=== PATIENT | female | born 1935 | race African-American/Black ===

== ENCOUNTER 2016-09-13 08:58 | Inpatient (IN) | payer MEDICARE ==
[~2016-09-13] VITALS: Ht 165.1 cm; Wt 81.2 kg
--- NOTE | 2016-09-13 09:50 | ED.ADGEN ---
Past Medical History Past Medical History: A-Fib, High Cholesterol, Hypertension Past Surgical History: Other Additional Past Surgical Histo: right wrist Alcohol Use: None Drug Use: None Adult General Chief Complaint Chief Complaint: EARACHE/EAR PAIN HPI HPI Patient is a 81 year old [woman, history of atrial fibrillation, hyper- cholesterolemia, hypertension, who presents to the emergency department multiple complaints. Patient states she's been experiencing sore throat, and ear pain since August. States that she's been seen by both her primary care provider and urgent care for this issue. States that she was started on a Z-Addi by her doctor, and then her ear cleaned out about a week ago at urgent care, and was given nasal spray. Patient states that over the past several days she's began feeling increasingly weak, states that when she stands up she feels as though she might fall down. She denies any distinct vertiginous type symptoms, no blurry vision, no focal weakness in this or tingling, no nausea or vomiting, no chest pain or shortness of breath. Does have a mild operative cough, did not receive a flu vaccination this year. Denies any sick contacts or exposures, history of DVT or PE, any recent travel or surgery. She says is accommodation of the symptoms that bring her to the emergency department today. States that she's been expressing fevers and chills at home, took Tylenol earlier this morning, and is afebrile upon arrival to the ED, has not been checking her temperature at home. Review of Systems Review of Systems Constitutional: Subjective fevers and chills, malaise. Eyes: Denies change in visual acuity. [] HENT: No nasal congestion, complaining of sore throat and left ear pain. Respiratory: Cough, no shortness of breath. Cardiovascular: Denies chest pain or edema. [] GI: Denies abdominal pain, nausea, vomiting, bloody stools or diarrhea. [] : Denies dysuria. [] Musculoskeletal: Denies back pain or joint pain. [] Integument: Denies rash. [] Neurologic: Denies headache, focal weakness or sensory changes. Generalized weakness. Endocrine: Denies polyuria or polydipsia. [] Lymphatic: Denies swollen glands. [] Psychiatric: Denies depression or anxiety. [] Allergies Allergies Physical Exam Physical Exam Constitutional: Well developed, well nourished, no acute distress, non-toxic appearance. [] HENT: Normocephalic, atraumatic, bilateral external ears normal, oropharynx is mildly injected, patient with turbinate swelling bilaterally, areas of mucosal irritation, mild clear rhinorrhea, no exudates, patient with mild swelling of the internal canal noted, with small amount of cerumen, no impaction noted, patient noted to have mild erythema of the TM, but no bulging or drainage identified, right TM noted to have small amount of cerumen, otherwise normal, no oral exudates, nose normal. [] Eyes: PERRLA, EOMI, conjunctiva normal, no discharge. [] Neck: Normal range of motion, no tenderness, supple, no stridor. [] Cardiovascular:Heart rate regular rhythm, no murmur, S1, S2, rubs or gallops. [] Lungs & Thorax: Diminished breath sounds at bases bilaterally, no wheezing, rhonchi, rales. No chest tenderness or crepitus. [] Abdomen: Bowel sounds normal, soft, no tenderness, no masses, no pulsatile masses. [] Skin: Warm, dry, no erythema, no rash. [] Back: No tenderness, no CVA tenderness. [] Extremities: No tenderness, no cyanosis, no clubbing, ROM intact, no edema. [] Neurologic: Alert and oriented X 3, normal motor function, normal sensory function, no focal deficits noted. [] Psychologic: Affect normal, judgement normal, mood normal. [] Current Patient Data Vital Signs Vital Signs Date Time Temp Pulse Resp B/P Pulse Ox O2 Delivery O2 Flow Rate FiO2 09/13/16 09:26 98.4 68 16 169/74 100 Room Air 98.4 Lab Values Laboratory Tests Test 09/13/16 09:40 09/13/16 09:56 09/13/16 10:00 White Blood Count 7.7x10^3/uL (4.0-11.0) Red Blood Count 4.53x10^6/uL (3.50-5.40) Hemoglobin 13.4g/dL (12.0-15.5) Hematocrit 39.8% (36.0-47.0) Mean Corpuscular Volume 88fL (79-100) Mean Corpuscular Hemoglobin 30pg (25-35) Mean Corpuscular Hemoglobin Concent 34g/dL (31-37) Red Cell Distribution Width 13.8% (11.5-14.5) Platelet Count 321x10^3/uL (140-400) Neutrophils (%) (Auto) 71% (31-73) Lymphocytes (%) (Auto) 17% (24-48) L Monocytes (%) (Auto) 10% (0-9) H Eosinophils (%) (Auto) 1% (0-3) Basophils (%) (Auto) 1% (0-3) Neutrophils # (Auto) 5.5x10^3uL (1.8-7.7) Lymphocytes # (Auto) 1.3x10^3/uL (1.0-4.8) Monocytes # (Auto) 0.8x10^3/uL (0.0-1.1) Eosinophils # (Auto) 0.1x10^3/uL (0.0-0.7) Basophils # (Auto) 0.1x10^3/uL (0.0-0.2) Sodium Level 136mmol/L (136-145) Potassium Level 3.8mmol/L (3.5-5.1) Chloride Level 97mmol/L (98-107) L Carbon Dioxide Level 27mmol/L (21-32) Anion Gap 12 (6-14) Blood Urea Nitrogen 15mg/dL (7-20) Creatinine 1.1mg/dL (0.6-1.0) H Estimated GFR (Cockcroft-Gault) 57.5 BUN/Creatinine Ratio 14 (6-20) Glucose Level 97mg/dL (70-99) Calcium Level 9.4mg/dL (8.5-10.1) Total Bilirubin 0.4mg/dL (0.2-1.0) Aspartate Amino Transferase (AST) 13U/L (15-37) L Alanine Aminotransferase (ALT) 19U/L (14-59) Alkaline Phosphatase 94U/L (46-116) Troponin I Quantitative < 0.017ng/mL (0.000-0.055) SF-Cwh-D-Type Natriuretic Peptide 36pg/mL (0-449) Total Protein 7.1g/dL (6.4-8.2) Albumin 3.6g/dL (3.4-5.0) Albumin/Globulin Ratio 1.0 (1.0-1.7) Influenza Type A Antigen Negative (NEGATIVE) Influenza Type B Antigen Negative (NEGATIVE) Urine Collection Type Unknown Urine Color Yellow Urine Clarity Cloudy Urine pH 6.0 Urine Specific [place] 1.020 Urine Protein Negativemg/dL (NEG-TRACE) Urine Glucose (UA) Negativemg/dL (NEG) Urine Ketones (Stick) 40mg/dL (NEG) Urine Blood Negative (NEG) Urine Nitrite Negative (NEG) Urine Bilirubin Moderate (NEG) Urine Urobilinogen Dipstick 0.2mg/dL (0.2 mg/dL) Urine Leukocyte Esterase Large (NEG) Urine RBC 1-2/HPF (0-2) Urine WBC >40/HPF (0-4) Urine Squamous Epithelial Cells Many/LPF Urine Transitional Epithelial Cells Few/LPF Urine Renal Epithelial Cells Few/LPF Urine Bacteria Many/HPF (0-FEW) Urine Hyaline Casts Moderate/HPF Urine Mucus Marked/LPF Urine Opiates Screen Neg (NEG) Urine Methadone Screen Neg (NEG) Urine Barbiturates Neg (NEG) Urine Phencyclidine Screen Neg (NEG) Urine Amphetamine/Methamphetamine Neg (NEG) Urine Benzodiazepines Screen Neg (NEG) Urine Cocaine Screen Neg (NEG) Urine Cannabinoids Screen Neg (NEG) Urine Ethyl Alcohol Neg (NEG) Laboratory Tests 09/13/16 09:40 Laboratory Tests 09/13/16 09:40 EKG EKG EC: Sinus rhythm, heart rate 60 bpm, left axis deviation with left anterior fascicular block noted, incomplete right bundle-branch block noted, QTc of 448, MN of 180, QRS of 118, abnormal ECG as stated, no ST elevations or depressions, as not meet STEMI criteria. As interpreted by me. Radiology/Procedures Radiology/Procedures [] [facility] [address] [place] [address] IMAGING REPORT Signed PATIENT: OSIRIS MAIER V ACCOUNT: [id number] : 1935 LOCATION: ER AGE: 81 SEX: F EXAM STATUS: REG ER ORD. PHYSICIAN: GISELE BROWN DO REASON: weakness PROCEDURE: PORTABLE CHEST 1V Examination: Single frontal view chest History: History of weakness, sore throat, earache Comparison: 07/27/2012 Findings: The cardiomediastinal silhouette grossly appears unremarkable. There is no acute infiltrate or visualized pneumothorax identified. Impression: No acute cardiopulmonary findings. DICTATED and SIGNED BY: SUELLEN ALTAMIRANO MD DATE: 09/13/16 0955 CC: GINO MACR MD; GISELE BROWN DO ~ Impressions: [facility] [address] [place] [address] IMAGING REPORT Signed PATIENT: OSIRIS MAIER V ACCOUNT: [id number] : 1935 LOCATION: ER AGE: 81 SEX: F EXAM STATUS: REG ER ORD. PHYSICIAN: GISELE BROWN DO REASON: weakness/PEÑA/earache PROCEDURE: HEAD WO CONTRAST CT head without contrast History: history of headache, dizziness Comparison: None. Procedure: Axial images are obtained of the head from the skull base through the vertex without IV contrast. Findings: Moderate bilateral periventricular white matter hypodensities likely chronic small vessel ischemic disease. There is no acute intracranial bleed or extra axial fluid collection identified. No evidence of midline shift. The ventricles are appropriate for age.. The visualized paranasal sinuses appear clear. Impression: 1. No acute intracranial process. PQRS Compliance Statement: One or more of the following individualized dose reduction techniques were utilized for this examination: 1. Automated exposure control 2. Adjustment of the mA and/or kV according to patient size 3. Use of iterative reconstruction technique DICTATED and SIGNED BY: SUELLEN ALTAMIRANO MD DATE: 09/13/16 1030 CC: GINO MARC MD; GISELE BROWN DO ~ Course & Med Decision Making Course & Med Decision Making Pertinent Labs and Imaging studies reviewed. (See chart for details) Patient with a grossly normal neurologic examination, CT of the head obtained due to her complaints of headache, weakness, off balance sensation, any ear pain. CT of the head did not reveal any evidence of concerning findings. X-ray of the chest was unremarkable, laboratory studies revealed urine with greater than 40 does BCs, bacteria, and ketones. On reevaluation patient states that she is still feeling "terrible", she still feels weak and as though when she stands up she will fall down. She denies any focal weakness as stated, this is a general sensation of malaise. Discussed findings as above with patient, due to complaints will treat for urinary tract infection, along with hydration, and monitoring. Findings as above discussed with Dr. Oro of internal medicine, patient accepted to her service as a full admission to the medical telemetry floor with IV fluids and ceftriaxone initiated in the ED. Dragon Disclaimer Dragon Disclaimer This electronic medical record was generated, in whole or in part, using a voice recognition dictation system. Departure Impression: Primary Impression: UTI (urinary tract infection) Additional Impression: Weakness Disposition: ADMITTED INPATIENT Admitting Physician: Karen Oro Condition: IMPROVED Problem Qualifiers Primary Impression: UTI (urinary tract infection) Urinary tract infection type: acute cystitis Hematuria presence: without hematuria Qualified Code: N30.00 - Acute cystitis without hematuria GISELE BROWN DO Sep 13, 2016 09:49
[2016-09-13 09:51] LABS: BASO # 0.1 x10^3/uL (0.0-0.2); BASO % 1 % (0-3); EOS % 1 % (0-3); HEMATOCRIT 39.8 % (36.0-47.0); HEMOGLOBIN 13.4 g/dL (12.0-15.5); LYMPH # 1.3 x10^3/uL (1.0-4.8); LYMPH % 17 % (24-48); MEAN CORPUSCULAR HEMOGLOBIN 30 pg (25-35); MEAN CORPUSCULAR HGB CONC 34 g/dL (31-37); MEAN CORPUSCULAR VOLUME 88 fL (79-100); MONO % 10 % (0-9); NEUT % 71 % (31-73); PLATELET COUNT 321 x10^3/uL (140-400); RED BLOOD COUNT 4.53 x10^6/uL (3.50-5.40); RED CELL DISTRIBUTION WIDTH 13.8 % (11.5-14.5); WHITE BLOOD COUNT 7.7 x10^3/uL (4.0-11.0)
--- NOTE | 2016-09-13 09:59 | RAD ---
Examination: Single frontal view chest History: History of weakness, sore throat, earache Comparison: 07/27/2012 Findings: The cardiomediastinal silhouette grossly appears unremarkable. There is no acute infiltrate or visualized pneumothorax identified. Impression: No acute cardiopulmonary findings.
[2016-09-13 10:01] LABS: CALCIUM 9.4 mg/dL (8.5-10.1); CREATININE 1.1 mg/dL (0.6-1.0); GFR 57.5; POTASSIUM 3.8 mmol/L (3.5-5.1)
[2016-09-13 10:06] LABS: ALBUMIN 3.6 g/dL (3.4-5.0); TOTAL BILIRUBIN 0.4 mg/dL (0.2-1.0); TOTAL PROTEIN 7.1 g/dL (6.4-8.2)
[2016-09-13 10:26] LABS: BILIRUBIN,URINE MODERATE (NEG); GLUCOSE,URINE NEGATIVE (NEG); NITRITE,URINE NEGATIVE (NEG); PROTEIN,URINE NEGATIVE (NEG-TRACE); UROBILINOGEN,URINE 0.2 mg/dL (0.2 mg/dL)
[2016-09-13 10:28] LABS: OBC FLU VALID
[2016-09-13 10:32] LABS: BARBITURATES NEG (NEG); BENZODIAZEPINES NEG (NEG); CANNABINOIDS NEG (NEG); COCAINE NEG (NEG); METHADONE NEG (NEG); OPIATES NEG (NEG); PHENCYCLIDINE NEG (NEG)
[2016-09-13 10:33] LABS: ETHANOL, URINE NEG (NEG)
[2016-09-13 10:34] LABS: BACTERIA,URINE MANY /HPF (0-FEW); SQUAMOUS EPITHELIAL CELL,UR MANY /LPF; WBC,URINE >40 /HPF (0-4)
--- NOTE | 2016-09-13 10:36 | RAD ---
CT head without contrast History: history of headache, dizziness Comparison: None. Procedure: Axial images are obtained of the head from the skull base through the vertex without IV contrast. Findings: Moderate bilateral periventricular white matter hypodensities likely chronic small vessel ischemic disease. There is no acute intracranial bleed or extra axial fluid collection identified. No evidence of midline shift. The ventricles are appropriate for age.. The visualized paranasal sinuses appear clear. Impression: 1. No acute intracranial process. PQRS Compliance Statement: One or more of the following individualized dose reduction techniques were utilized for this examination: 1. Automated exposure control 2. Adjustment of the mA and/or kV according to patient size 3. Use of iterative reconstruction technique
--- NOTE | 2016-09-13 10:58 | EKG ---
[facility] [address] [place] [address] Test Date: 2016-09-13 Test Time: 10:28:35 Pat Name: OSIRIS MAIER Department: Room: Gender: F [employer] Work[employer]: : 1935 Requested By: GISELE BROWN Order Number: [id number] Reading MD: Roc Wheeler Measurements Intervals [place] Rate: 60 P: 56 MO: 180 QRS: -47 QRSD: 118 T: 10 QT: 448 QTc: 448 Interpretive Statements SINUS RHYTHM ABNORMAL LEFT AXIS DEVIATION R-S TRANSITION ZONE IN V LEADS DISPLACED TO THE RIGHT LEFT ANTERIOR FASCICULAR BLOCK INCOMPLETE RIGHT BUNDLE BRANCH BLOCK RI6.01 Unconfirmed report Compared to ECG 07/27/2012 13:02:34 Electronically Signed On 09-14-2016 9:42:34 EVALUATION SPECIALIST by Roc Wheeler
[2016-09-13] MEDS ORDERED: IV NORMAL SALINE 1000ML BAG 1,000 ML IV ONE (12:00)
[2016-09-13] MEDS ORDERED: CEFTRIAXONE 1GM IVPB FOR OMNI 50 ML IV ONE (12:00)
[2016-09-13] MEDS ORDERED: CALCIUM CARBONATE 500 MG TAB.CHEW PO PRN (13:00)
[2016-09-13] MEDS ORDERED: OXYCODONE IR 5 MG TABLET. PO PRN (13:00)
[2016-09-13] MEDS ORDERED: ZOLPIDEM 5 MG TABLET. PO PRN (13:00)
[2016-09-13] MEDS ORDERED: PROCHLORPERAZINE 25 MG SUPP.RECT. PR PRN (13:00)
[2016-09-13] MEDS ORDERED: ONDANSETRON PF 4 MG/2 ML VIAL. IV PRN (13:00)
[2016-09-13] MEDS ORDERED: MAG HYDROX/ALUMINUM HYD/SIMETH 30 ML ORAL.SUSP PO PRN (13:00)
[2016-09-13] MEDS ORDERED: PROCHLORPERAZINE 10 MG/2 ML VIAL. IV PRN (13:00)
[2016-09-13] MEDS ORDERED: MORPHINE SULFATE 2 MG/ML DISP.SYRIN. IV PRN (13:00)
[2016-09-13] MEDS ORDERED: hydrALAZINE 20 MG/ML VIAL. IVP PRN (13:15)
[2016-09-13] MEDS ORDERED: BUDE10.2 IH (13:54)
[2016-09-13] MEDS ORDERED: LISI1TAB7 PO (13:54)
[2016-09-13] MEDS ORDERED: METO25TA9 PO (13:54)
[2016-09-13] MEDS ORDERED: SIMV20TA3 PO (13:54)
[2016-09-13] MEDS ORDERED: DILT180C29 PO (13:54)
[2016-09-13] MEDS ORDERED: ERYTHROMYCIN BASE 250 MG TABLET PO SCH (14:00)
--- NOTE | 2016-09-13 14:01 | PDOC1 ---
History and Physical Date of Admission Date of Admission DATE: 09/13/16 TIME: 13:55 Identification/Chief Complaint Chief Complaint left ear ache Source Source: Caregiver, Chart review, Patient History of Present Illness History of Present Illness 81 y.o AA female comes to er bec of left ear ache and odynophagia, has finished OP zpack and ear drops with no relief, But pt admitted bec pt claims she is too weak, she cant stand up or walk. She lives alone at home and does not have assistive device, She claims she might need a walker, She was disheartened when I told her we dont have ENT here, I inspected ears and posterior pharyngeal wall and did not appreciate any hyperemia, buts he does have some fluid and cerumen and very mild redness external auditory canal, but no tenderness in ear area. She is worried re weakness, hence decided to stay rather than be dcd and do OP ENT. She however refuses to go to inpt rehab if needed ALl albs ok, CXR and labs and flu A and B all neg She claims anaphylaxis to PCN Past Medical History Cardiovascular: HTN Past Surgical History Past Surgical History: No pertinent history Family History Family History: No Significant Social History Smoke: No ALCOHOL: none Current Problem List Problem List Problems Medical Problems: (1) Generalized weakness Status: Acute (2) UTI (urinary tract infection) Status: Acute (3) Weakness Status: Acute Problems: Current Medications Current Medications Current Medications Sodium Chloride 1,000 ml @ 100 mls/hr 1X ONCE IV Last administered on 12:04; Start 09/13/16 at 12:00; Stop 09/13/16 at 21:59 Ceftriaxone Sodium 50 ml @ 100 mls/hr 1X ONCE IV Last administered on 12:04; Start 09/13/16 at 12:00; Stop 09/13/16 at 12:29; Status DC Ceftriaxone Sodium/Sodium Chloride (Rocephin/Iv Sodium Chloride 0.9% 50ml) 50 ml @ 100 mls/hr Q24H IV ; Start 09/14/16 at 12:00 Ondansetron HCl (Zofran) 4 mg PRN Q6HRS PRN IV NAUSEA/VOMITING; Start 09/13/16 at 13:00 Prochlorperazine Edisylate (Compazine) 10 mg PRN Q6HRS PRN IV NAUSEA/VOMITING; Start 09/13/16 at 13:00 Prochlorperazine (Compazine) 25 mg PRN Q12HR PRN [place] NAUSEA/VOMITING; Start 09/13 at 13:00 Al Hydrox/Mg Hydrox/Simethicone (Mylanta Plus Xs) 30 ml PRN Q3HRS PRN PO HEARTBURN / GAS; Start 09/13/16 at 13:00 Calcium Carbonate/ Glycine (Tums) 500 mg PRN Q3HRS PRN PO UPSET STOMACH; Start 09/13/16 at 13:00 Zolpidem Tartrate (Ambien) 5 mg PRN QHS PRN PO INSOMNIA, MAY REPEAT IN 1HR; Start 09/13/16 at 13:00 Oxycodone HCl (Roxicodone) 5 mg PRN Q3HRS PRN PO BREAKTHROUGH PAIN; Start at 13:00 Morphine Sulfate 1 mg PRN Q2HR PRN IV PAIN; Start 09/13/16 at 13:00 Hydralazine HCl (Apresoline) 10 mg PRN Q4HRS PRN IVP ELEVATED BP, SEE COMMENTS ; Start 09/13/16 at 13:15 Active Scripts Active Reported Metoprolol Succinate ( Xl ) (Metoprolol Succinate) 25 Mg Tab.er.24h 1 Tab PO HS Simvastatin 20 Mg Tablet 1 Tab PO QHS Lisinopril-Hctz 20-25 Mg Tab (Lisinopril/Hydrochlorothiazide) 1 Each Tablet Tab PO AFTRNOON Diltiazem 24HR Cd (Diltiazem Hcl) 180 Mg Cap.er.24h 2 Cap PO DAILY Symbicort 160-4.5 Mcg Inhaler (Budesonide/Formoterol Fumarate) 10.2 Gm Hfa.aer.ad 2 Puff IH BID Allergies Allergies: Coded Allergies: Penicillins (Verified Allergy, Intermediate, 09/13/16) clindamycin (Verified Allergy, Intermediate, 09/13/16) rosuvastatin (Verified Allergy, Intermediate, 09/13/16) sulfur (Verified Allergy, Intermediate, 09/13/16) ROS General: YES: Fatigue, Other (weakness) PSYCHOLOGICAL ROS: No: Anxiety, Behavioral Disorder, Concentration difficultie , Decreased libido, Depression, Disorientation, Hallucinations, Hostility, Irritablity, Memory difficulties, Mood Swings, Obsessive thoughts, Other, Physical abuse, Sexual abuse, Sleep disturbances, Suicidal ideation Eyes: No Blurry vision, No Decreased vision, No Double vision, No Dry eyes, No Excessive tearing, No Eye Pain, No Itchy Eyes, No Loss of vision, No Other, No Photophobia, No Scotomata, No Uses contacts, No Uses glasses HEENT: YES: Nasal congestion, Other (left ear ache), Sinus pain, Sore Throat ALLERGY AND IMMUNOLOGY: No: Hives, Insect Bite Sensitivity, Itchy/Watery Eyes, Nasal Congestion, Other, Post Nasal Drip, Seasonal Allergies Hematological and Lymphatic: No: Bleeding Problems, Blood Clots, Blood Transfusions, Brusing, Night Sweats, Other, Pallor, Swollen Lymph Nodes ENDOCRINE: No: Breast Changes, Galactorrhea, Hair Pattern Changes, Hot Flashes , Malaise/lethargy, Mood Swings, Other, Palpitations, Polydipsia/polyuria, Skin Changes, Temperature Intolerance, Unexpected Weight Changes Breast: No New/Changing Breast Lumps, No Nipple changes, No Nipple discharge, No Other Respiratory: No: Cough, Hemoptysis, Orthopnea, Other, Pleuritic Pain, SOB with excertion, Shortness of breath, Sputum Changes, Stridor, Tachypnea, Wheezing Gastrointestinal: No Abdominal Pain, No Constipation, No Diarrhea, No Hematochezia, No Melena, No Nausea, No Other, No Vomiting Genitourinary: No , No , No , No , No , No , No , No Discharge, No Dysuria, No Flank Pain, No Frequency, No Hematuria, No Incontinence, No Other, No Pain, No Retention, No Urgency Musculoskeletal: No Gait Disturbance, No Joint Pain, No Joint Stiffness, No Joint Swelling, No Muscle Pain, No Muscular Weakness, No Other, No Pain In:, No Swelling In: Neurological: No Behavorial Changes, No Bowel/Bladder ControlChng, No Confusion , No Dizziness, No Gait Disturbance, No Headaches, No Impaired Coord/balance, No Memory Loss, No Numbness/Tingling, No Other, No Seizures, No Speech Problems , No Tremors, No Visual Changes, No Weakness Skin: No Acne, No Dry Skin, No Eczema, No Hair Changes, No Lumps, No Mole Changes, No Mottling, No Nail Changes, No Other, No Pruritus, No Rash, No Skin Lesion Changes Physical Exam General: Alert, Oriented X3, Cooperative, No acute distress HEENT: PERRLA, Other (no hyperemia, post wall, no abscess TNE, ear wax and some fluid left ear - just ahd drops) Lungs: Clear to auscultation Heart: S1S2, RRR, no thrills Breasts: Normal Abdomen: Normal bowel sounds, Soft, No tenderness, No hepatosplenomegaly, No masses Male Genitals Exam: normal genitalia, normal prostate Rectal Exam: not examined PELVIC: Nml ext genitalia Extremities: No clubbing, No cyanosis, No edema, Normal pulses, No tenderness/ swelling Skin: No rashes, No breakdown, No significant lesion Neuro: Normal gait, Normal speech, Strength at 5/5 X4 ext, Normal tone, Sensation intact, Cranial nerves 3-12 NL, Reflexes 2+ Psych/Mental Status: Mental status NL, Mood NL Vitals Vitals Vital Signs Date Time Temp Pulse Resp B/P Pulse Ox O2 Delivery O2 Flow Rate FiO2 09/13/16 12:30 58 12 150/63 96 09/13/16 09:26 98.4 Room Air 98.4 Labs Labs Laboratory Tests Test 09/13/16 09:40 09/13/16 09:56 09/13/16 10:00 White Blood Count 7.7x10^3/uL (4.0-11.0) Red Blood Count 4.53x10^6/uL (3.50-5.40) Hemoglobin 13.4g/dL (12.0-15.5) Hematocrit 39.8% (36.0-47.0) Mean Corpuscular Volume 88fL (79-100) Mean Corpuscular Hemoglobin 30pg (25-35) Mean Corpuscular Hemoglobin Concent 34g/dL (31-37) Red Cell Distribution Width 13.8% (11.5-14.5) Platelet Count 321x10^3/uL (140-400) Neutrophils (%) (Auto) 71% (31-73) Lymphocytes (%) (Auto) 17% (24-48) Monocytes (%) (Auto) 10% (0-9) Eosinophils (%) (Auto) 1% (0-3) Basophils (%) (Auto) 1% (0-3) Neutrophils # (Auto) 5.5x10^3uL (1.8-7.7) Lymphocytes # (Auto) 1.3x10^3/uL (1.0-4.8) Monocytes # (Auto) 0.8x10^3/uL (0.0-1.1) Eosinophils # (Auto) 0.1x10^3/uL (0.0-0.7) Basophils # (Auto) 0.1x10^3/uL (0.0-0.2) Sodium Level 136mmol/L (136-145) Potassium Level 3.8mmol/L (3.5-5.1) Chloride Level 97mmol/L (98-107) Carbon Dioxide Level 27mmol/L (21-32) Anion Gap 12 (6-14) Blood Urea Nitrogen 15mg/dL (7-20) Creatinine 1.1mg/dL (0.6-1.0) Estimated GFR (Cockcroft-Gault) 57.5 BUN/Creatinine Ratio 14 (6-20) Glucose Level 97mg/dL (70-99) Calcium Level 9.4mg/dL (8.5-10.1) Total Bilirubin 0.4mg/dL (0.2-1.0) Aspartate Amino Transf (AST/SGOT) 13U/L (15-37) Alanine Aminotransferase (ALT/SGPT) 19U/L (14-59) Alkaline Phosphatase 94U/L (46-116) Troponin I Quantitative < 0.017ng/mL (0.000-0.055) BS-Pyv-O-Type Natriuretic Peptide 36pg/mL (0-449) Total Protein 7.1g/dL (6.4-8.2) Albumin 3.6g/dL (3.4-5.0) Albumin/Globulin Ratio 1.0 (1.0-1.7) Influenza Type A Antigen Negative (NEGATIVE) Influenza Type B Antigen Negative (NEGATIVE) Urine Collection Type Unknown Urine Color Yellow Urine Clarity Cloudy Urine pH 6.0 Urine Specific [place] 1.020 Urine Protein Negativemg/dL (NEG-TRACE) Urine Glucose (UA) Negativemg/dL (NEG) Urine Ketones (Stick) 40mg/dL (NEG) Urine Blood Negative (NEG) Urine Nitrite Negative (NEG) Urine Bilirubin Moderate (NEG) Urine Urobilinogen Dipstick 0.2mg/dL (0.2 mg/dL) Urine Leukocyte Esterase Large (NEG) Urine RBC 1-2/HPF (0-2) Urine WBC >40/HPF (0-4) Urine Squamous Epithelial Cells Many/LPF Urine Transitional Epithelial Cells Few/LPF Urine Renal Epithelial Cells Few/LPF Urine Bacteria Many/HPF (0-FEW) Urine Hyaline Casts Moderate/HPF Urine Mucus Marked/LPF Urine Opiates Screen Neg (NEG) Urine Methadone Screen Neg (NEG) Urine Barbiturates Neg (NEG) Urine Phencyclidine Screen Neg (NEG) Urine Amphetamine/Methamphetamine Neg (NEG) Urine Benzodiazepines Screen Neg (NEG) Urine Cocaine Screen Neg (NEG) Urine Cannabinoids Screen Neg (NEG) Urine Ethyl Alcohol Neg (NEG) Laboratory Tests Test 09/13/16 09:40 09/13/16 09:56 09/13/16 10:00 White Blood Count 7.7x10^3/uL (4.0-11.0) Red Blood Count 4.53x10^6/uL (3.50-5.40) Hemoglobin 13.4g/dL (12.0-15.5) Hematocrit 39.8% (36.0-47.0) Mean Corpuscular Volume 88fL (79-100) Mean Corpuscular Hemoglobin 30pg (25-35) Mean Corpuscular Hemoglobin Concent 34g/dL (31-37) Red Cell Distribution Width 13.8% (11.5-14.5) Platelet Count 321x10^3/uL (140-400) Neutrophils (%) (Auto) 71% (31-73) Lymphocytes (%) (Auto) 17% (24-48) Monocytes (%) (Auto) 10% (0-9) Eosinophils (%) (Auto) 1% (0-3) Basophils (%) (Auto) 1% (0-3) Neutrophils # (Auto) 5.5x10^3uL (1.8-7.7) Lymphocytes # (Auto) 1.3x10^3/uL (1.0-4.8) Monocytes # (Auto) 0.8x10^3/uL (0.0-1.1) Eosinophils # (Auto) 0.1x10^3/uL (0.0-0.7) Basophils # (Auto) 0.1x10^3/uL (0.0-0.2) Sodium Level 136mmol/L (136-145) Potassium Level 3.8mmol/L (3.5-5.1) Chloride Level 97mmol/L (98-107) Carbon Dioxide Level 27mmol/L (21-32) Anion Gap 12 (6-14) Blood Urea Nitrogen 15mg/dL (7-20) Creatinine 1.1mg/dL (0.6-1.0) Estimated GFR (Cockcroft-Gault) 57.5 BUN/Creatinine Ratio 14 (6-20) Glucose Level 97mg/dL (70-99) Calcium Level 9.4mg/dL (8.5-10.1) Total Bilirubin 0.4mg/dL (0.2-1.0) Aspartate Amino Transf (AST/SGOT) 13U/L (15-37) Alanine Aminotransferase (ALT/SGPT) 19U/L (14-59) Alkaline Phosphatase 94U/L (46-116) Troponin I Quantitative < 0.017ng/mL (0.000-0.055) RC-Xhy-P-Type Natriuretic Peptide 36pg/mL (0-449) Total Protein 7.1g/dL (6.4-8.2) Albumin 3.6g/dL (3.4-5.0) Albumin/Globulin Ratio 1.0 (1.0-1.7) Influenza Type A Antigen Negative (NEGATIVE) Influenza Type B Antigen Negative (NEGATIVE) Urine Collection Type Unknown Urine Color Yellow Urine Clarity Cloudy Urine pH 6.0 Urine Specific [place] 1.020 Urine Protein Negativemg/dL (NEG-TRACE) Urine Glucose (UA) Negativemg/dL (NEG) Urine Ketones (Stick) 40mg/dL (NEG) Urine Blood Negative (NEG) Urine Nitrite Negative (NEG) Urine Bilirubin Moderate (NEG) Urine Urobilinogen Dipstick 0.2mg/dL (0.2 mg/dL) Urine Leukocyte Esterase Large (NEG) Urine RBC 1-2/HPF (0-2) Urine WBC >40/HPF (0-4) Urine Squamous Epithelial Cells Many/LPF Urine Transitional Epithelial Cells Few/LPF Urine Renal Epithelial Cells Few/LPF Urine Bacteria Many/HPF (0-FEW) Urine Hyaline Casts Moderate/HPF Urine Mucus Marked/LPF Urine Opiates Screen Neg (NEG) Urine Methadone Screen Neg (NEG) Urine Barbiturates Neg (NEG) Urine Phencyclidine Screen Neg (NEG) Urine Amphetamine/Methamphetamine Neg (NEG) Urine Benzodiazepines Screen Neg (NEG) Urine Cocaine Screen Neg (NEG) Urine Cannabinoids Screen Neg (NEG) Urine Ethyl Alcohol Neg (NEG) VTE Prophylaxis Ordered VTE Prophylaxis Devices: Yes VTE Pharmacological Prophylaxi: Yes Assessment/Plan Assessment/Plan 1. Otitis media likely 2. SIniusitis 3. Anaphylaxis to PCN 4. gen weakness Plan: Otic drops Emycin oral H2 antag PT/OT Will need rx for walker Does not want to be started on PO steroids Does not want inpt rehab OBS YARELI BUTLER MD Sep 13, 2016 14:01
[2016-09-13] MEDS ORDERED: BENZOCAINE/MENTHOL LOZENGE. PO PRN (14:15)
[2016-09-13] MEDS: ALBUTEROL SULFATE 2.5 MG/3 ML NEBU. NEB SCH ×2 (15:21→20:00)
[2016-09-13 15:41] VITALS: BP 131/45
[2016-09-13] MEDS: HYDROCHLOROTHIAZIDE 25 MG TABLET PO SCH (16:34)
[2016-09-13] MEDS: NEOMYCIN/POLYMYXIN/HC OTIC SUSPENSION 10ML BOTTLE. AS SCH ×2 (16:34→21:31)
[2016-09-13] MEDS: LISINOPRIL 20 MG TABLET PO SCH (16:35)
--- NOTE | 2016-09-13 17:03 | ACF ---
Admission Forms Criteria URINARY COMPLICATIONS Clinical Indications for Inpatient Care (Place 'X' for any and all applicable criteria): Ongoing inpatient care may be indicated for urinary complications with ANY ONE of the following: [X]I. Urinary tract infection requiring inpatient care as indicated by ANY ONE of the following(8)(19)(20): [ ]a) Severe symptoms (eg, high fever, severe pain) [ ]b) Vomiting or dehydration requiring ongoing inpatient care [X]c) IV antibiotic needs that cannot be managed at lower level of care [ ]d) Hemodynamic instability [ ]e) Obstruction of collecting system by stone or tumor [ ]II. Urinary retention requiring drainage or surgery (3)(4)(5)(17)(18) [ ]III. Renal failure (Use Renal Failure Criteria for further information.) [ ]IV. Oliguria(30) [ ]V. Post obstructive diuresis requiring close monitoring of urine output and intravenous compensation for excessive fluid losses(33) Extended stay beyond goal length of stay for primary condition may be needed until ALL of the following are present(3)(4)(5)(8): [ ]a) Renal function (creatinine) at baseline, or daily decreases in creatinine consistent with renal function return [ ]b) Voiding adequately or with urinary catheter or percutaneous suprapubic tube and management regimen in place that is performable at lower level of care. [ ]c) Urine output adequate [ ]d) Fever absent or resolving [ ]e) Infection absent or treatable at next level of care The original [employer] content created by [employer] has been revised. The portions of the content which have been revised are identified through the use of italic text or in bold, and [facility] has neither reviewed nor approved the modified material. All other unmodified content is copyright [employer] Please see references footnoted in the original [facility] edition 2016 Admission Criteria Met?: Yes LYNDA BAKER Sep 13, 2016 17:03
[2016-09-13 19:00] VITALS: BP 130/53
[2016-09-13] MEDS: BUDESONIDE 0.5 MG/2 ML NEBU NEB SCH (20:00)
[2016-09-13] MEDS ORDERED: NON FORMULARY ITEM (Budesonide/Formoterol Fumarate (Symbicort 160-4.5 Mcg Inhaler) 2 PUFF) IH SCH (21:00)
[2016-09-13] MEDS: SIMVASTATIN 20 MG TABLET PO SCH (21:31)
[2016-09-13] MEDS: CIPROFLOXACIN HCL 250 MG TABLET PO SCH (21:31)
[2016-09-13] MEDS: CELECOXIB 100 MG CAPSULE PO SCH (21:32)
[2016-09-13] MEDS: METOPROLOL SUCC 24HR ER 25 MG TAB.ER.24H. PO SCH (21:32)
[2016-09-13 23:00] VITALS: BP 124/48
[2016-09-14 03:03] VITALS: BP 117/48
[2016-09-14 07:00] VITALS: BP 131/51
[2016-09-14] MEDS: BUDESONIDE 0.5 MG/2 ML NEBU NEB SCH ×2 (07:09→19:03)
[2016-09-14] MEDS: ALBUTEROL SULFATE 2.5 MG/3 ML NEBU. NEB SCH ×4 (07:09→19:04)
[2016-09-14] MEDS: NEOMYCIN/POLYMYXIN/HC OTIC SUSPENSION 10ML BOTTLE. AS SCH ×3 (10:13→19:54)
[2016-09-14] MEDS: CELECOXIB 100 MG CAPSULE PO SCH ×2 (10:14→19:54)
[2016-09-14] MEDS: DILTIAZEM HCL 180 MG CAP.ER.24H PO SCH (10:14)
[2016-09-14] MEDS: CETIRIZINE HCL 10 MG TABLET PO SCH (10:15)
[2016-09-14] MEDS: CIPROFLOXACIN HCL 250 MG TABLET PO SCH ×2 (10:15→19:54)
--- NOTE | 2016-09-14 10:27 | PDOC ---
PROGRESS NOTES Chief Complaint Chief Complaint 1. Otitis media likely 2. SIniusitis 3. Anaphylaxis to PCN 4. gen weakness 5. Non sustained vtach History of Present Illness History of Present Illness 4 beat run of vtach yesterday, asymptomatic On cardizem 180 mg ER at home for hTN Feels better today s/p Zpack for sinusitis/ear infection Emycin has interaction with cardizem - arrhythmias per pharmacy So now we decided on cipro PLAN: COnsult cards Keep tele COnt H2 antag, otic drops and cipro PO Will need ENT as OP Await PT/OT today - claims very weak, can fall if stands too long - but DOES NOT want inpt rehab or SNU (thinks she will need a walker) dw RN and pt Vitals Vitals Vital Signs Date Time Temp Pulse Resp B/P Pulse Ox O2 Delivery O2 Flow Rate FiO2 09/14/16 10:14 73 131/51 09/14/16 07:10 99 Room Air 09/14/16 07:00 97.8 18 97.8 Physical Exam General: Alert, Oriented X3, Cooperative, No acute distress Abdomen: Normal bowel sounds, Soft, No tenderness, No hepatosplenomegaly, No masses Extremities: No clubbing, No cyanosis, No edema, Normal pulses, No tenderness/ swelling Skin: No rashes, No breakdown, No significant lesion Review of Systems Review of Systems ear pain, throat pain, no fevers, no cp Assessment and Plan Assessmemt and Plan Problems Medical Problems: (1) Generalized weakness Status: Acute (2) UTI (urinary tract infection) Status: Acute (3) Weakness Status: Acute Problems: Comment Review of Relevant I have reviewed the following items jean marie (where applicable) has been applied. Labs Laboratory Tests Test 09/13/16 09:40 09/13/16 09:56 09/13/16 10:00 White Blood Count 7.7x10^3/uL (4.0-11.0) Red Blood Count 4.53x10^6/uL (3.50-5.40) Hemoglobin 13.4g/dL (12.0-15.5) Hematocrit 39.8% (36.0-47.0) Mean Corpuscular Volume 88fL (79-100) Mean Corpuscular Hemoglobin 30pg (25-35) Mean Corpuscular Hemoglobin Concent 34g/dL (31-37) Red Cell Distribution Width 13.8% (11.5-14.5) Platelet Count 321x10^3/uL (140-400) Neutrophils (%) (Auto) 71% (31-73) Lymphocytes (%) (Auto) 17% (24-48) Monocytes (%) (Auto) 10% (0-9) Eosinophils (%) (Auto) 1% (0-3) Basophils (%) (Auto) 1% (0-3) Neutrophils # (Auto) 5.5x10^3uL (1.8-7.7) Lymphocytes # (Auto) 1.3x10^3/uL (1.0-4.8) Monocytes # (Auto) 0.8x10^3/uL (0.0-1.1) Eosinophils # (Auto) 0.1x10^3/uL (0.0-0.7) Basophils # (Auto) 0.1x10^3/uL (0.0-0.2) Sodium Level 136mmol/L (136-145) Potassium Level 3.8mmol/L (3.5-5.1) Chloride Level 97mmol/L (98-107) Carbon Dioxide Level 27mmol/L (21-32) Anion Gap 12 (6-14) Blood Urea Nitrogen 15mg/dL (7-20) Creatinine 1.1mg/dL (0.6-1.0) Estimated GFR (Cockcroft-Gault) 57.5 BUN/Creatinine Ratio 14 (6-20) Glucose Level 97mg/dL (70-99) Calcium Level 9.4mg/dL (8.5-10.1) Total Bilirubin 0.4mg/dL (0.2-1.0) Aspartate Amino Transf (AST/SGOT) 13U/L (15-37) Alanine Aminotransferase (ALT/SGPT) 19U/L (14-59) Alkaline Phosphatase 94U/L (46-116) Troponin I Quantitative < 0.017ng/mL (0.000-0.055) NC-Mlw-Z-Type Natriuretic Peptide 36pg/mL (0-449) Total Protein 7.1g/dL (6.4-8.2) Albumin 3.6g/dL (3.4-5.0) Albumin/Globulin Ratio 1.0 (1.0-1.7) Influenza Type A Antigen Negative (NEGATIVE) Influenza Type B Antigen Negative (NEGATIVE) Urine Collection Type Unknown Urine Color Yellow Urine Clarity Cloudy Urine pH 6.0 Urine Specific [place] 1.020 Urine Protein Negativemg/dL (NEG-TRACE) Urine Glucose (UA) Negativemg/dL (NEG) Urine Ketones (Stick) 40mg/dL (NEG) Urine Blood Negative (NEG) Urine Nitrite Negative (NEG) Urine Bilirubin Moderate (NEG) Urine Urobilinogen Dipstick 0.2mg/dL (0.2 mg/dL) Urine Leukocyte Esterase Large (NEG) Urine RBC 1-2/HPF (0-2) Urine WBC >40/HPF (0-4) Urine Squamous Epithelial Cells Many/LPF Urine Transitional Epithelial Cells Few/LPF Urine Renal Epithelial Cells Few/LPF Urine Bacteria Many/HPF (0-FEW) Urine Hyaline Casts Moderate/HPF Urine Mucus Marked/LPF Urine Opiates Screen Neg (NEG) Urine Methadone Screen Neg (NEG) Urine Barbiturates Neg (NEG) Urine Phencyclidine Screen Neg (NEG) Urine Amphetamine/Methamphetamine Neg (NEG) Urine Benzodiazepines Screen Neg (NEG) Urine Cocaine Screen Neg (NEG) Urine Cannabinoids Screen Neg (NEG) Urine Ethyl Alcohol Neg (NEG) Medications Current Medications Sodium Chloride 1,000 ml @ 100 mls/hr 1X ONCE IV Last administered on 12:04; Start 09/13/16 at 12:00; Stop 09/13/16 at 21:59; Status DC Ceftriaxone Sodium 50 ml @ 100 mls/hr 1X ONCE IV Last administered on 12:04; Start 09/13/16 at 12:00; Stop 09/13/16 at 12:29; Status DC Ceftriaxone Sodium/Sodium Chloride (Rocephin/Iv Sodium Chloride 0.9% 50ml) 50 ml @ 100 mls/hr Q24H IV ; Start 09/14/16 at 12:00 Ondansetron HCl (Zofran) 4 mg PRN Q6HRS PRN IV NAUSEA/VOMITING; Start 09/13/16 at 13:00; Status Cancel Prochlorperazine Edisylate (Compazine) 10 mg PRN Q6HRS PRN IV NAUSEA/VOMITING; Start 09/13/16 at 13:00 Prochlorperazine (Compazine) 25 mg PRN Q12HR PRN PA NAUSEA/VOMITING; Start 09/13 at 13:00 Al Hydrox/Mg Hydrox/Simethicone (Mylanta Plus Xs) 30 ml PRN Q3HRS PRN PO HEARTBURN / GAS; Start 09/13/16 at 13:00 Calcium Carbonate/ Glycine (Tums) 500 mg PRN Q3HRS PRN PO UPSET STOMACH; Start 09/13/16 at 13:00 Zolpidem Tartrate (Ambien) 5 mg PRN QHS PRN PO INSOMNIA, MAY REPEAT IN 1HR; Start 09/13/16 at 13:00 Oxycodone HCl (Roxicodone) 5 mg PRN Q3HRS PRN PO BREAKTHROUGH PAIN; Start at 13:00 Morphine Sulfate 1 mg PRN Q2HR PRN IV PAIN; Start 09/13/16 at 13:00 Hydralazine HCl (Apresoline) 10 mg PRN Q4HRS PRN IVP ELEVATED BP, SEE COMMENTS ; Start 09/13/16 at 13:15 Neomycin/ Polymyxin/ Hydrocortisone (Cortisporin Otic) 1 drop TID Last administered on 09/14/16 10:13; Start 09/13/16 at 14:00 Erythromycin (E-Mycin) 500 mg TID PO ; Start 09/13/16 at 14:00; Stop 09/13/16 at 16:32; Status DC Cetirizine HCl (Zyrtec) 10 mg DAILY PO Last administered on 09/14/16 10:15; Start 09/14/16 at 09:00 Throat Lozenges (Cepacol Sore Throat Lozenge) 1 trish PRN Q2HRS PRN PO SORE THROAT; Start 09/13/16 at 14:15 Celecoxib (Celebrex) 100 mg BID PO Last administered on 09/14/16 10:14; Start 09/13/16 at 21:00 Diltiazem HCl (Cardizem 24hr Cd) 360 mg DAILY PO Last administered on 09/14/16 10:14; Start 09/14/16 at 09:00 Metoprolol Succinate (Toprol Xl) 25 mg HS PO Last administered on 09/13/16 21: 32; Start 09/13/16 at 21:00 Simvastatin (Zocor) 20 mg QHS PO Last administered on 09/13/16 21:31; Start 09/13/16 at 21:00 Non-Formulary Medication 2 puff BID IH asthma/copd; Start 09/13/16 at 21:00; Status UNV Lisinopril (Prinivil) 20 mg DAILY PO Last administered on 09/13/16 16:35; Start 09/13/16 at 15:00 Hydrochlorothiazide (Hydrodiuril) 25 mg DAILY PO Last administered on 09/13/16 16:34; Start 09/13/16 at 14:00 Albuterol Sulfate (Ventolin Neb Soln) 2.5 mg RTQID NEB Last administered on 09/14 07:09; Start 09/13/16 at 16:00 Budesonide (Pulmicort) 0.5 mg RTBID NEB Last administered on 09/14/16 07:09; Start 09/13/16 at 20:00 Ciprofloxacin (Cipro) 500 mg BID PO Last administered on 09/14/16 10:15; Start 09/13/16 at 21:00 Active Scripts Active Reported Metoprolol Succinate ( Xl ) (Metoprolol Succinate) 25 Mg Tab.er.24h 1 Tab PO HS Simvastatin 20 Mg Tablet 1 Tab PO QHS Lisinopril-Hctz 20-25 Mg Tab (Lisinopril/Hydrochlorothiazide) 1 Each Tablet Tab PO AFTRNOON Diltiazem 24HR Cd (Diltiazem Hcl) 180 Mg Cap.er.24h 2 Cap PO DAILY Symbicort 160-4.5 Mcg Inhaler (Budesonide/Formoterol Fumarate) 10.2 Gm Hfa.aer.ad 2 Puff IH BID Vitals/I & O Vital Sign - Last 24 Hours 09/13/16 09/13/16 09/13/16 09/13/16 10:30 11:30 12:30 15:25 Pulse 58 60 58 Resp 11 11 12 B/P 138/62 138/65 150/63 Pulse Ox 98 98 96 98 O2 Delivery Room Air 09/13/16 09/13/16 09/13/16 09/13/16 15:41 16:35 19:00 20:00 Temp 97.9 98.1 97.9 98.1 Pulse 95 95 64 Resp 19 20 B/P 131/45 131/45 130/53 Pulse Ox 100 97 97 O2 Delivery Room Air Room Air Room Air 09/13/16 09/13/16 09/13/16 09/14/16 20:00 21:32 23:00 03:03 Temp 98.4 98.5 98.4 98.5 Pulse 64 56 54 Resp 20 20 B/P 130/53 124/48 117/48 Pulse Ox 95 97 O2 Delivery Room Air Room Air Room Air 09/14/16 09/14/16 09/14/16 07:00 07:10 10:14 Temp 97.8 97.8 Pulse 57 73 Resp 18 B/P 131/51 131/51 Pulse Ox 98 99 O2 Delivery Room Air Room Air Intake and Output 09/13/16 09/13/16 09/14/16 15:00 23:00 07:00 Intake Total 60 ml 200 ml Output Total 500 ml Balance -440 ml 200 ml YARELI BUTLER MD Sep 14, 2016 10:27
[2016-09-14 10:52] VITALS: BP 125/44
[2016-09-14] MEDS: HYDROCHLOROTHIAZIDE 25 MG TABLET PO SCH (13:33)
[2016-09-14] MEDS: CEFTRIAXONE SODIUM 1 GM in IV NORMAL SALINE 50ML 50 ML IV SCH (13:33)
[2016-09-14] MEDS: LISINOPRIL 20 MG TABLET PO SCH (13:34)
[2016-09-14 15:00] VITALS: BP 127/46
--- NOTE | 2016-09-14 15:46 | PDOC2 ---
CONSULT Date of Consult Date of Consult DATE: 09/14/16 TIME: 15:37 Reason for Consult Reason for Consult: Lightheadedness Referring Physician Referring Physician: Dr Oro Identification/Chief Complaint Chief Complaint UTI History of Present Illness Reason for Visit: This patient is a very pleasant 81-year-old lady that denies any previous cardiac problems. She has been having some episodes of lightheadedness at home especially when she gets up and tries to get around. No episodes of loss of consciousness. The patient came into the hospital with an infection and a possible urinary tract infection and is being treated for that. Since her arrival she has been monitored and they have been several episodes of possible dysrhythmias in her monitor. While attempting to do some physical therapy the patient felt lightheaded but at that time she was not being monitored. I was asked to come and see the patient because of the possibility of ventricular tachycardia on the rhythm strips. She also had the computer reporting bradycardia as well as asystole. I have reviewed all of the rhythm strips. The episodes of asystole that the computer reported is normal sinus rhythm with a low amplitude that the computer is not recognizing the QRS. The episodes of bradycardia are not significant in that the rates were not below 50. The episodes that were reported of ventricular tachycardia were thoroughly reviewed and in my opinion this is just artifact, you can march sinus rhythm and the QRS through all of the artifact. The patient denies having any chest pains, she denies any palpitations, she denied any episode of syncope. Past Medical History Cardiovascular: HTN Past Surgical History Past Surgical History: No pertinent history Family History Family History: No Significant Social History No ALCOHOL: none Current Problem List Problem List Problems Medical Problems: (1) Generalized weakness Status: Acute (2) UTI (urinary tract infection) Status: Acute (3) Weakness Status: Acute Current Medications Current Medications Current Medications Sodium Chloride 1,000 ml @ 100 mls/hr 1X ONCE IV Last administered on 12:04; Start 09/13/16 at 12:00; Stop 09/13/16 at 21:59; Status DC Ceftriaxone Sodium 50 ml @ 100 mls/hr 1X ONCE IV Last administered on 12:04; Start 09/13/16 at 12:00; Stop 09/13/16 at 12:29; Status DC Ceftriaxone Sodium/Sodium Chloride (Rocephin/Iv Sodium Chloride 0.9% 50ml) 50 ml @ 100 mls/hr Q24H IV Last administered on 09/14/16 13:33; Start 09/14/16 at 12:00 Ondansetron HCl (Zofran) 4 mg PRN Q6HRS PRN IV NAUSEA/VOMITING; Start 09/13/16 at 13:00; Status Cancel Prochlorperazine Edisylate (Compazine) 10 mg PRN Q6HRS PRN IV NAUSEA/VOMITING; Start 09/13/16 at 13:00 Prochlorperazine (Compazine) 25 mg PRN Q12HR PRN [place] NAUSEA/VOMITING; Start 09/13 at 13:00 Al Hydrox/Mg Hydrox/Simethicone (Mylanta Plus Xs) 30 ml PRN Q3HRS PRN PO HEARTBURN / GAS; Start 09/13/16 at 13:00 Calcium Carbonate/ Glycine (Tums) 500 mg PRN Q3HRS PRN PO UPSET STOMACH; Start 09/13/16 at 13:00 Zolpidem Tartrate (Ambien) 5 mg PRN QHS PRN PO INSOMNIA, MAY REPEAT IN 1HR; Start 09/13/16 at 13:00 Oxycodone HCl (Roxicodone) 5 mg PRN Q3HRS PRN PO BREAKTHROUGH PAIN; Start at 13:00 Morphine Sulfate 1 mg PRN Q2HR PRN IV PAIN; Start 09/13/16 at 13:00 Hydralazine HCl (Apresoline) 10 mg PRN Q4HRS PRN IVP ELEVATED BP, SEE COMMENTS ; Start 09/13/16 at 13:15 Neomycin/ Polymyxin/ Hydrocortisone (Cortisporin Otic) 1 drop TID Last administered on 09/14/16 13:35; Start 09/13/16 at 14:00 Erythromycin (E-Mycin) 500 mg TID PO ; Start 09/13/16 at 14:00; Stop 09/13/16 at 16:32; Status DC Cetirizine HCl (Zyrtec) 10 mg DAILY PO Last administered on 09/14/16 10:15; Start 09/14/16 at 09:00 Throat Lozenges (Cepacol Sore Throat Lozenge) 1 trish PRN Q2HRS PRN PO SORE THROAT; Start 09/13/16 at 14:15 Celecoxib (Celebrex) 100 mg BID PO Last administered on 09/14/16 10:14; Start 09/13/16 at 21:00 Diltiazem HCl (Cardizem 24hr Cd) 360 mg DAILY PO Last administered on 09/14/16 10:14; Start 09/14/16 at 09:00 Metoprolol Succinate (Toprol Xl) 25 mg HS PO Last administered on 09/13/16 21: 32; Start 09/13/16 at 21:00 Simvastatin (Zocor) 20 mg QHS PO Last administered on 09/13/16 21:31; Start 09/13/16 at 21:00 Non-Formulary Medication 2 puff BID IH asthma/copd; Start 09/13/16 at 21:00; Status UNV Lisinopril (Prinivil) 20 mg DAILY PO Last administered on 09/14/16 13:34; Start 09/13/16 at 15:00 Hydrochlorothiazide (Hydrodiuril) 25 mg DAILY PO Last administered on 09/14/16 13:33; Start 09/13/16 at 14:00 Albuterol Sulfate (Ventolin Neb Soln) 2.5 mg RTQID NEB Last administered on 09/14 15:34; Start 09/13/16 at 16:00 Budesonide (Pulmicort) 0.5 mg RTBID NEB Last administered on 09/14/16 07:09; Start 09/13/16 at 20:00 Ciprofloxacin (Cipro) 500 mg BID PO Last administered on 09/14/16 10:15; Start 09/13/16 at 21:00 Active Scripts Active Reported Metoprolol Succinate ( Xl ) (Metoprolol Succinate) 25 Mg Tab.er.24h 1 Tab PO HS Simvastatin 20 Mg Tablet 1 Tab PO QHS Lisinopril-Hctz 20-25 Mg Tab (Lisinopril/Hydrochlorothiazide) 1 Each Tablet Tab PO AFTRNOON Diltiazem 24HR Cd (Diltiazem Hcl) 180 Mg Cap.er.24h 2 Cap PO DAILY Symbicort 160-4.5 Mcg Inhaler (Budesonide/Formoterol Fumarate) 10.2 Gm Hfa.aer.ad 2 Puff IH BID Allergies Allergies: Coded Allergies: Penicillins (Verified Allergy, Intermediate, 09/13/16) clindamycin (Verified Allergy, Intermediate, 09/13/16) rosuvastatin (Verified Allergy, Intermediate, 09/13/16) sulfur (Verified Allergy, Intermediate, 09/13/16) Physical Exam General: Alert, Oriented X3, Cooperative HEENT: Atraumatic, PERRLA Lungs: Clear to auscultation Heart: Regular rate, Normal S1, Normal S2, Other (1 to 2/6 systolic murmur best at the second intercostal space right parasternal area) Abdomen: Normal bowel sounds, Soft Extremities: No edema Vitals VITALS Vital Signs Date Time Temp Pulse Resp B/P Pulse Ox O2 Delivery O2 Flow Rate FiO2 09/14/16 15:35 98 Room Air 09/14/16 13:34 64 125/44 09/14/16 10:52 97.8 18 97.8 Labs Labs Laboratory Tests Test 09/13/16 09:40 09/13/16 09:56 09/13/16 10:00 White Blood Count 7.7x10^3/uL (4.0-11.0) Red Blood Count 4.53x10^6/uL (3.50-5.40) Hemoglobin 13.4g/dL (12.0-15.5) Hematocrit 39.8% (36.0-47.0) Mean Corpuscular Volume 88fL (79-100) Mean Corpuscular Hemoglobin 30pg (25-35) Mean Corpuscular Hemoglobin Concent 34g/dL (31-37) Red Cell Distribution Width 13.8% (11.5-14.5) Platelet Count 321x10^3/uL (140-400) Neutrophils (%) (Auto) 71% (31-73) Lymphocytes (%) (Auto) 17% (24-48) Monocytes (%) (Auto) 10% (0-9) Eosinophils (%) (Auto) 1% (0-3) Basophils (%) (Auto) 1% (0-3) Neutrophils # (Auto) 5.5x10^3uL (1.8-7.7) Lymphocytes # (Auto) 1.3x10^3/uL (1.0-4.8) Monocytes # (Auto) 0.8x10^3/uL (0.0-1.1) Eosinophils # (Auto) 0.1x10^3/uL (0.0-0.7) Basophils # (Auto) 0.1x10^3/uL (0.0-0.2) Sodium Level 136mmol/L (136-145) Potassium Level 3.8mmol/L (3.5-5.1) Chloride Level 97mmol/L (98-107) Carbon Dioxide Level 27mmol/L (21-32) Anion Gap 12 (6-14) Blood Urea Nitrogen 15mg/dL (7-20) Creatinine 1.1mg/dL (0.6-1.0) Estimated GFR (Cockcroft-Gault) 57.5 BUN/Creatinine Ratio 14 (6-20) Glucose Level 97mg/dL (70-99) Calcium Level 9.4mg/dL (8.5-10.1) Total Bilirubin 0.4mg/dL (0.2-1.0) Aspartate Amino Transf (AST/SGOT) 13U/L (15-37) Alanine Aminotransferase (ALT/SGPT) 19U/L (14-59) Alkaline Phosphatase 94U/L (46-116) Troponin I Quantitative < 0.017ng/mL (0.000-0.055) OT-Fpq-D-Type Natriuretic Peptide 36pg/mL (0-449) Total Protein 7.1g/dL (6.4-8.2) Albumin 3.6g/dL (3.4-5.0) Albumin/Globulin Ratio 1.0 (1.0-1.7) Influenza Type A Antigen Negative (NEGATIVE) Influenza Type B Antigen Negative (NEGATIVE) Urine Collection Type Unknown Urine Color Yellow Urine Clarity Cloudy Urine pH 6.0 Urine Specific [place] 1.020 Urine Protein Negativemg/dL (NEG-TRACE) Urine Glucose (UA) Negativemg/dL (NEG) Urine Ketones (Stick) 40mg/dL (NEG) Urine Blood Negative (NEG) Urine Nitrite Negative (NEG) Urine Bilirubin Moderate (NEG) Urine Urobilinogen Dipstick 0.2mg/dL (0.2 mg/dL) Urine Leukocyte Esterase Large (NEG) Urine RBC 1-2/HPF (0-2) Urine WBC >40/HPF (0-4) Urine Squamous Epithelial Cells Many/LPF Urine Transitional Epithelial Cells Few/LPF Urine Renal Epithelial Cells Few/LPF Urine Bacteria Many/HPF (0-FEW) Urine Hyaline Casts Moderate/HPF Urine Mucus Marked/LPF Urine Opiates Screen Neg (NEG) Urine Methadone Screen Neg (NEG) Urine Barbiturates Neg (NEG) Urine Phencyclidine Screen Neg (NEG) Urine Amphetamine/Methamphetamine Neg (NEG) Urine Benzodiazepines Screen Neg (NEG) Urine Cocaine Screen Neg (NEG) Urine Cannabinoids Screen Neg (NEG) Urine Ethyl Alcohol Neg (NEG) Assessment/Plan Assessment/Plan This patient comes in with a urinary tract infection and has been having episodes of lightheadedness and possibly near syncope. The reported dysrhythmia has been reviewed and in my opinion I don't see any significant arrhythmia and they reported ventricular tachycardia is just artifact, no significant bradycardia or asystole was found. The patient sounds to have an aortic murmur and because of the near syncope I would like to continue to monitor her and get an echocardiogram. I will be happy to follow the patient with you. Thank you very much for asking me to participate in the care of this patient. SEVERIANO DOW MD Sep 14, 2016 15:46
[2016-09-14] MEDS: METOPROLOL SUCC 24HR ER 25 MG TAB.ER.24H. PO SCH (19:06)
[2016-09-14] MEDS: SIMVASTATIN 20 MG TABLET PO SCH (19:54)
[2016-09-14 19:56] VITALS: BP 112/40
[2016-09-14 23:16] VITALS: BP 111/40
[2016-09-15 03:17] VITALS: BP 128/62
[2016-09-15 07:00] VITALS: BP 116/44
[2016-09-15] MEDS: BUDESONIDE 0.5 MG/2 ML NEBU NEB SCH (07:16)
[2016-09-15] MEDS: ALBUTEROL SULFATE 2.5 MG/3 ML NEBU. NEB SCH ×2 (07:16→11:13)
[2016-09-15] MEDS: NEOMYCIN/POLYMYXIN/HC OTIC SUSPENSION 10ML BOTTLE. AS SCH ×2 (08:22→14:19)
[2016-09-15] MEDS: CELECOXIB 100 MG CAPSULE PO SCH (08:22)
[2016-09-15] MEDS: DILTIAZEM HCL 180 MG CAP.ER.24H PO SCH (08:22)
[2016-09-15] MEDS: CETIRIZINE HCL 10 MG TABLET PO SCH (08:23)
[2016-09-15] MEDS: CIPROFLOXACIN HCL 250 MG TABLET PO SCH (08:23)
[2016-09-15] MEDS: LISINOPRIL 20 MG TABLET PO SCH (09:00)
[2016-09-15] MEDS: HYDROCHLOROTHIAZIDE 25 MG TABLET PO SCH (09:00)
--- NOTE | 2016-09-15 09:29 | PDOC ---
PROGRESS NOTES Subjective Subjective No acute events overnight. Pt doing better. Denies chest pain, palpitation or shortness of breath at this time. Objective Objective Vital Signs Date Time Temp Pulse Resp B/P Pulse Ox O2 Delivery O2 Flow Rate FiO2 09/15/16 08:22 61 116/44 09/15/16 07:18 95 Room Air 09/15/16 07:00 97.8 18 97.8 Intake and Output 09/15/16 07:00 Intake Total 1400 ml Output Total 300 ml Balance 1100 ml Intake Oral 1400 ml Stool Total 300 ml # Voids 2 Physical Exam Physical Exam No changes in cardiac exam. Assessment Assessment Problems Medical Problems: (1) Generalized weakness Status: Acute (2) UTI (urinary tract infection) Status: Acute (3) Weakness Status: Acute Plan Plan of Care Cont medical treatment Echocardiogram today Cont cardiac monitoring per floor protocol Comment Review of Relevant I have reviewed the following items jean marie (where applicable) has been applied. Labs Laboratory Tests Test 09/13/16 09:40 09/13/16 09:56 09/13/16 10:00 White Blood Count 7.7x10^3/uL (4.0-11.0) Red Blood Count 4.53x10^6/uL (3.50-5.40) Hemoglobin 13.4g/dL (12.0-15.5) Hematocrit 39.8% (36.0-47.0) Mean Corpuscular Volume 88fL (79-100) Mean Corpuscular Hemoglobin 30pg (25-35) Mean Corpuscular Hemoglobin Concent 34g/dL (31-37) Red Cell Distribution Width 13.8% (11.5-14.5) Platelet Count 321x10^3/uL (140-400) Neutrophils (%) (Auto) 71% (31-73) Lymphocytes (%) (Auto) 17% (24-48) Monocytes (%) (Auto) 10% (0-9) Eosinophils (%) (Auto) 1% (0-3) Basophils (%) (Auto) 1% (0-3) Neutrophils # (Auto) 5.5x10^3uL (1.8-7.7) Lymphocytes # (Auto) 1.3x10^3/uL (1.0-4.8) Monocytes # (Auto) 0.8x10^3/uL (0.0-1.1) Eosinophils # (Auto) 0.1x10^3/uL (0.0-0.7) Basophils # (Auto) 0.1x10^3/uL (0.0-0.2) Sodium Level 136mmol/L (136-145) Potassium Level 3.8mmol/L (3.5-5.1) Chloride Level 97mmol/L (98-107) Carbon Dioxide Level 27mmol/L (21-32) Anion Gap 12 (6-14) Blood Urea Nitrogen 15mg/dL (7-20) Creatinine 1.1mg/dL (0.6-1.0) Estimated GFR (Cockcroft-Gault) 57.5 BUN/Creatinine Ratio 14 (6-20) Glucose Level 97mg/dL (70-99) Calcium Level 9.4mg/dL (8.5-10.1) Total Bilirubin 0.4mg/dL (0.2-1.0) Aspartate Amino Transf (AST/SGOT) 13U/L (15-37) Alanine Aminotransferase (ALT/SGPT) 19U/L (14-59) Alkaline Phosphatase 94U/L (46-116) Troponin I Quantitative < 0.017ng/mL (0.000-0.055) JW-Gtp-D-Type Natriuretic Peptide 36pg/mL (0-449) Total Protein 7.1g/dL (6.4-8.2) Albumin 3.6g/dL (3.4-5.0) Albumin/Globulin Ratio 1.0 (1.0-1.7) Influenza Type A Antigen Negative (NEGATIVE) Influenza Type B Antigen Negative (NEGATIVE) Urine Collection Type Unknown Urine Color Yellow Urine Clarity Cloudy Urine pH 6.0 Urine Specific [place] 1.020 Urine Protein Negativemg/dL (NEG-TRACE) Urine Glucose (UA) Negativemg/dL (NEG) Urine Ketones (Stick) 40mg/dL (NEG) Urine Blood Negative (NEG) Urine Nitrite Negative (NEG) Urine Bilirubin Moderate (NEG) Urine Urobilinogen Dipstick 0.2mg/dL (0.2 mg/dL) Urine Leukocyte Esterase Large (NEG) Urine RBC 1-2/HPF (0-2) Urine WBC >40/HPF (0-4) Urine Squamous Epithelial Cells Many/LPF Urine Transitional Epithelial Cells Few/LPF Urine Renal Epithelial Cells Few/LPF Urine Bacteria Many/HPF (0-FEW) Urine Hyaline Casts Moderate/HPF Urine Mucus Marked/LPF Urine Opiates Screen Neg (NEG) Urine Methadone Screen Neg (NEG) Urine Barbiturates Neg (NEG) Urine Phencyclidine Screen Neg (NEG) Urine Amphetamine/Methamphetamine Neg (NEG) Urine Benzodiazepines Screen Neg (NEG) Urine Cocaine Screen Neg (NEG) Urine Cannabinoids Screen Neg (NEG) Urine Ethyl Alcohol Neg (NEG) Microbiology 09/13/16 Urine Culture - Preliminary, Resulted 09/13/16 Urine Culture Result 1 (VIANNEY) - Preliminary, Resulted Medications Current Medications Sodium Chloride 1,000 ml @ 100 mls/hr 1X ONCE IV Last administered on 12:04; Start 09/13/16 at 12:00; Stop 09/13/16 at 21:59; Status DC Ceftriaxone Sodium 50 ml @ 100 mls/hr 1X ONCE IV Last administered on 12:04; Start 09/13/16 at 12:00; Stop 09/13/16 at 12:29; Status DC Ceftriaxone Sodium/Sodium Chloride (Rocephin/Iv Sodium Chloride 0.9% 50ml) 50 ml @ 100 mls/hr Q24H IV Last administered on 09/14/16 13:33; Start 09/14/16 at 12:00 Ondansetron HCl (Zofran) 4 mg PRN Q6HRS PRN IV NAUSEA/VOMITING; Start 09/13/16 at 13:00; Status Cancel Prochlorperazine Edisylate (Compazine) 10 mg PRN Q6HRS PRN IV NAUSEA/VOMITING; Start 09/13/16 at 13:00 Prochlorperazine (Compazine) 25 mg PRN Q12HR PRN [place] NAUSEA/VOMITING; Start 09/13 at 13:00 Al Hydrox/Mg Hydrox/Simethicone (Mylanta Plus Xs) 30 ml PRN Q3HRS PRN PO HEARTBURN / GAS; Start 09/13/16 at 13:00 Calcium Carbonate/ Glycine (Tums) 500 mg PRN Q3HRS PRN PO UPSET STOMACH; Start 09/13/16 at 13:00 Zolpidem Tartrate (Ambien) 5 mg PRN QHS PRN PO INSOMNIA, MAY REPEAT IN 1HR; Start 09/13/16 at 13:00 Oxycodone HCl (Roxicodone) 5 mg PRN Q3HRS PRN PO BREAKTHROUGH PAIN; Start at 13:00 Morphine Sulfate 1 mg PRN Q2HR PRN IV PAIN; Start 09/13/16 at 13:00 Hydralazine HCl (Apresoline) 10 mg PRN Q4HRS PRN IVP ELEVATED BP, SEE COMMENTS ; Start 09/13/16 at 13:15 Neomycin/ Polymyxin/ Hydrocortisone (Cortisporin Otic) 1 drop TID Last administered on 09/15/16 08:22; Start 09/13/16 at 14:00 Erythromycin (E-Mycin) 500 mg TID PO ; Start 09/13/16 at 14:00; Stop 09/13/16 at 16:32; Status DC Cetirizine HCl (Zyrtec) 10 mg DAILY PO Last administered on 09/15/16 08:23; Start 09/14/16 at 09:00 Throat Lozenges (Cepacol Sore Throat Lozenge) 1 trish PRN Q2HRS PRN PO SORE THROAT Last administered on 09/14/16 19:54; Start 09/13/16 at 14:15 Celecoxib (Celebrex) 100 mg BID PO Last administered on 09/15/16 08:22; Start 09/13/16 at 21:00 Diltiazem HCl (Cardizem 24hr Cd) 360 mg DAILY PO Last administered on 09/15/16 08:22; Start 09/14/16 at 09:00 Metoprolol Succinate (Toprol Xl) 25 mg HS PO Last administered on 09/13/16 21: 32; Start 09/13/16 at 21:00 Simvastatin (Zocor) 20 mg QHS PO Last administered on 09/14/16 19:54; Start 09/13/16 at 21:00 Non-Formulary Medication 2 puff BID IH asthma/copd; Start 09/13/16 at 21:00; Status UNV Lisinopril (Prinivil) 20 mg DAILY PO Last administered on 09/14/16 13:34; Start 09/13/16 at 15:00 Hydrochlorothiazide (Hydrodiuril) 25 mg DAILY PO Last administered on 09/14/16 13:33; Start 09/13/16 at 14:00 Albuterol Sulfate (Ventolin Neb Soln) 2.5 mg RTQID NEB Last administered on 09/15 07:16; Start 09/13/16 at 16:00 Budesonide (Pulmicort) 0.5 mg RTBID NEB Last administered on 09/15/16 07:16; Start 09/13/16 at 20:00 Ciprofloxacin (Cipro) 500 mg BID PO Last administered on 09/15/16 08:23; Start 09/13/16 at 21:00 Active Scripts Active Reported Metoprolol Succinate ( Xl ) (Metoprolol Succinate) 25 Mg Tab.er.24h 1 Tab PO HS Simvastatin 20 Mg Tablet 1 Tab PO QHS Lisinopril-Hctz 20-25 Mg Tab (Lisinopril/Hydrochlorothiazide) 1 Each Tablet Tab PO AFTRNOON Diltiazem 24HR Cd (Diltiazem Hcl) 180 Mg Cap.er.24h 2 Cap PO DAILY Symbicort 160-4.5 Mcg Inhaler (Budesonide/Formoterol Fumarate) 10.2 Gm Hfa.aer.ad 2 Puff IH BID Vitals/I & O Vital Sign - Last 24 Hours 09/14/16 09/14/16 09/14/16 09/14/16 10:14 10:52 11:02 13:34 Temp 97.8 97.8 Pulse 73 64 64 Resp 18 B/P 131/51 125/44 125/44 Pulse Ox 96 O2 Delivery Room Air Room Air 09/14/16 09/14/16 09/14/16 09/14/16 15:00 15:35 19:05 19:05 Pulse 64 Resp 18 B/P 127/46 Pulse Ox 97 98 96 96 O2 Delivery Room Air Room Air Room Air Room Air 09/14/16 09/14/16 09/14/16 09/15/16 19:56 20:00 23:16 03:17 Temp 97.7 98.0 96.9 97.7 98.0 96.9 Pulse 87 66 75 Resp 20 18 20 B/P 112/40 111/40 128/62 Pulse Ox 96 96 96 O2 Delivery Room Air Room Air Room Air Room Air 09/15/16 09/15/16 09/15/16 07:00 07:18 08:22 Temp 97.8 97.8 Pulse 61 61 Resp 18 B/P 116/44 116/44 Pulse Ox 100 95 O2 Delivery Room Air Room Air Intake and Output 09/14/16 09/14/16 09/15/16 15:00 23:00 07:00 Intake Total 360 ml 1040 ml Output Total 300 ml Balance 360 ml 740 ml SEVERIANO DOW MD Sep 15, 2016 09:29
[2016-09-15 10:53] VITALS: BP 119/45
[2016-09-15] MEDS: CEFTRIAXONE SODIUM 1 GM in IV NORMAL SALINE 50ML 50 ML IV SCH (11:30)
[2016-09-15] MEDS ORDERED: CIPR250T30 PO (11:36)
[2016-09-15] MEDS ORDERED: NEOM10DR8 AS (11:36)
--- NOTE | 2016-09-15 14:08 | PDOC3 ---
Discharge Summary [facility] Date of Admission: Sep 13, 2016 Discharge Date: Sep 15, 2016 Admitting Diagnosis 1. external otitis likely 2. SIniusitis? 3. Anaphylaxis to PCN 4. gen weakness 5. Non sustained vtach Problems: Final Diagnosis Problems Medical Problems: (1) Generalized weakness Status: Acute (2) UTI (urinary tract infection) Status: Acute (3) Weakness Status: Acute CONSULTS card Brief Hospital Course Ms. Lamas is a 81 old F comes for left ear pain, wo discharge or hearing loss. no fever, chills, + sore throat. pt also has non sustanined VT, echo done. talked to dr. Delatorre , pt can dc after echo. no UTI symptom. got cipro and cefriaxone in hosp. dc home with cipro and abx drop for possible external otitis, asking pt to fu ENT as outpt dc time 40min General: Alert, Oriented X3, Cooperative, No acute distress. no pain when pulling left ear. Abdomen: Normal bowel sounds, Soft, No tenderness, No hepatosplenomegaly, No masses Extremities: No clubbing, No cyanosis, No edema, Normal pulses, No tenderness/ swelling Skin: No rashes, No breakdown, No significant lesion Patient History: Family history: Asthma 33 FATHER G8 SISTER Family history: Hypertension (situation) 32 MOTHER Problems: Disposition home CONDITION AT DISCHARGE: Improved Diet regular Scheduled Budesonide/Formoterol Fumarate (Symbicort 160-4.5 Mcg Inhaler) 2 PUFF IH BID ( Reported) Ciprofloxacin Hcl (Cipro) 500 MG PO BID Diltiazem Hcl (Diltiazem 24HR Cd) 2 CAP PO DAILY (Reported) Lisinopril/Hydrochlorothiazide (Lisinopril-Hctz 20-25 Mg Tab) TAB PO AFTRNOON ( Reported) Metoprolol Succinate (Metoprolol Succinate ( Xl )) 1 TAB PO HS (Reported) Neomycin/Polymyxin B Sulf/Hc (Vtihmvfw-Icszxyksj-Bn Ear Susp) 1 DROP TID Simvastatin (Simvastatin) 1 TAB PO QHS (Reported) Follow Up pcp next week EVANGELISTA PARKER MD Sep 15, 2016 14:08
--- NOTE | 2016-09-15 18:36 | CARD ---
APPROVED REPORT EXAM: Two-dimensional and M-mode echocardiogram with Doppler and color Doppler. Other Information Quality : Average Rhythm : NSR INDICATION Syncope Murmur 2D DIMENSIONS RVDd2.4 (2.9-3.5cm)Left Atrium(2D)3.3 (1.6-4.0cm) IVSd0.8 (0.7-1.1cm)Aortic Root(2D)2.4 (2.0-3.7cm) LVDd4.3 (3.9-5.9cm)LVOT Diameter2.0 (1.8-2.4cm) PWd0.9 (0.7-1.1cm)LVDs2.4 (2.5-4.0cm) FS (%) 33.8 %SV62.5 ml LVEF(%)65.0 (>50%) Aortic Valve AoV Peak Jake.227.4cm/sAoV VTI50.3cm AO Peak GR.20.7mmHgLVOT Peak Jake.168.9cm/s AO Mean GR.12mmHgAVA (VMAX)2.25cm2 JUNG (VTI)2.41at0LA P 1/2 Dyen732er Mitral Valve MV E Czryocne85.8cm/sMV E Peak Gr.8mmHg MV DECEL [id number] A Utkuuppm826.6cm/s MV E Mean Gr.2mmHgMV DWZ88cs E/A Ratio0.7MV A Uzudkdfx513nh MVA (PHT)2.40cm2 Tricuspid Valve TR P. Eototvse195zr/sRAP WWLYIFZI7msUu TR Peak Gr.62ktBtBFUA13cvLl Pulmonary Vein S1 Szmygmct78.5cm/sD2 Nysvwkrz07.0cm/s LEFT VENTRICLE The left ventricle is normal size. There is normal left ventricular wall thickness. Left ventricle sy stolic function is normal. The Ejection Fraction is 65%. There is normal LV segmental wall motion. Ti ssue Doppler imaging reveals mild left ventricular diastolic dysfunction. Transmitral Doppler flow pa ttern is Grade I-abnormal relaxation pattern. RIGHT VENTRICLE The right ventricle is normal size. The right ventricular systolic function is normal. ATRIA The left atrium size is normal. The right atrium size is normal. The interatrial septum is intact wit h no evidence for an atrial septal defect or patent foramen ovale as noted on 2-D or Doppler imaging. AORTIC VALVE The aortic valve is moderately sclerotic. Doppler and Color Flow revealed mild aortic regurgitation. There is no significant aortic valvular stenosis. MITRAL VALVE Mitral annular calcification is mild. There is no mitral valve stenosis. Doppler and Color Flow revea led trace to mild mitral regurgitation. TRICUSPID VALVE The tricuspid valve is normal in structure and function. Doppler and Color Flow revealed trace tricus pid regurgitation. The PA pressure was estimated at 15 mmHg. There is no tricuspid valve stenosis. PULMONIC VALVE The pulmonic valve is not well visualized. Doppler and Color Flow revealed no pulmonic valvular regur gitation. There is no pulmonic valvular stenosis. GREAT VESSELS The aortic root is normal in size. Normal pulmonary venous flow (Doppler). The IVC is normal in size and collapses >50% with inspiration. PERICARDIAL EFFUSION There is no evidence of significant pericardial effusion. Critical Notification Critical Value: No <Conclusion> Left ventricle systolic function is normal. The Ejection Fraction is 65%. Tissue Doppler imaging reveals mild left ventricular diastolic dysfunction. Transmitral Doppler flow pattern is Grade I-abnormal relaxation pattern. The left atrium size is normal. The right atrium size is normal. The aortic valve is moderately sclerotic. Doppler and Color Flow revealed mild aortic regurgitation. There is no significant aortic valvular stenosis. Doppler and Color Flow revealed trace to mild mitral regurgitation. Mitral annular calcification is mild. Doppler and Color Flow revealed trace tricuspid regurgitation. The PA pressure was estimated at 15 mmHg. The pulmonic valve is not well visualized. There is no evidence of significant pericardial effusion.
== END 2016-09-15 15:28 | disposition home or self-care (01) | DRG 155 ==
LOC: ER 08:58 → 5 NORTH 11:44
PROVIDERS: ADMIT Internal Medicine; ATTEND Internal Medicine
DX: H60.90 Unspecified otitis externa, unspecified ear (principal); N39.0 Urinary tract infection, site not specified; I47.2 Ventricular tachycardia; H66.90 Otitis media, unspecified, unspecified ear; J32.9 Chronic sinusitis, unspecified; E78.00 Pure hypercholesterolemia, unspecified; I10 Essential (primary) hypertension; I48.91 Unspecified atrial fibrillation; Z82.49 Family history of ischemic heart disease and other diseases of the circulatory system; Z82.5 Family history of asthma and other chronic lower respiratory diseases; Z88.0 Allergy status to penicillin; Z88.8 Allergy status to other drugs, medicaments and biological substances; Z79.899 Other long term (current) drug therapy
CPT/HCPCS: 36415; 70450; 71010; 80053; 81001; 83880; 84484; 85027; 87086; 87804; 93005; 93306; 94250; 94640; 94760; 96374; G0481; J0690; J0696; J7030; 99285-25